=== PATIENT | male | born 1985 | race Caucasian/White ===

== ENCOUNTER 2018-12-11 16:38 | Emergency (ER) | payer OTHER ==
[~2018-12-11] VITALS: Ht 180.3 cm; Wt 131.5 kg
[~2018-12-11 16:38] MED LIST: FLOVENT DISKUS50 MCG; MOTRIN800 MG PO; PREDNISOLONE SO10 MG PO; SINGULAIR 10MG10 MG
[2018-12-11] MEDS ORDERED: SYMBICORT 80/10.2 GM (17:14)
[2018-12-11] MEDS ORDERED: PROMETH-CODEIN 65 ML PO (21:51)
[2018-12-11] MEDS ORDERED: IPRAT-ALBUT 0.5-3 ML IH (21:51)
[2018-12-11] MEDS ORDERED: MUCINEX DM ER1 EAC1 PO (21:51)
[2018-12-11] MEDS ORDERED: ZITHROMAX500 MG PO (21:51)
== END 2018-12-11 21:50 | disposition home or self-care (01) ==
LOC: ER 16:38
DX: J06.9 Acute upper respiratory infection, unspecified (principal)

== ENCOUNTER 2019-05-20 18:32 | Emergency (ER) | payer OTHER ==
[~2019-05-20] VITALS: Ht 180.3 cm; Wt 134.3 kg
[~2019-05-20 18:32] MED LIST changes: +IPRAT-ALBUT 0.5-3 ML IH; +MUCINEX DM ER1 EAC1 PO; +PROMETH-CODEIN 65 ML PO; +SYMBICORT 80/10.2 GM; +ZITHROMAX500 MG PO
[2019-05-20] MEDS ORDERED: ZYRTEC10 M3 (19:23)
== END 2019-05-20 22:15 | disposition home or self-care (01) ==
LOC: ER 18:32
DX: R51 Headache (principal); M79.662 Pain in left lower leg; M79.661 Pain in right lower leg; J32.8 Other chronic sinusitis

== ENCOUNTER → 2021-01-23 09:46 | Outpatient (CLI) | payer OTHER ==
[~2021-01-23 09:46] MED LIST changes: +ZYRTEC10 M3
== END | disposition home or self-care (01) ==
LOC: PPH VACUNA 09:46
DX: Z23 Encounter for immunization (principal)

== ENCOUNTER 2022-01-20 15:13 | Emergency (ER) | payer OTHER ==
[~2022-01-20] VITALS: Ht 180.3 cm; Wt 145.1 kg
[2022-01-20] MEDS ORDERED: ATACAND4 MG PO (15:30)
== END 2022-01-20 19:07 | disposition home or self-care (01) ==
LOC: ER 15:13
DX: J45.909 Unspecified asthma, uncomplicated (principal); Z20.822 Contact with and (suspected) exposure to COVID-19

== ENCOUNTER 2023-03-14 05:27 | Day surgery (SDC) | payer OTHER ==
[~2023-03-14 05:27] MED LIST changes: +ATACAND4 MG PO
== END 2023-03-14 09:25 | disposition home or self-care (01) ==
LOC: AMB-ENDOS 05:27
PROVIDERS: ATTEND Surgery
DX: K29.60 Other gastritis without bleeding (principal); K44.9 Diaphragmatic hernia without obstruction or gangrene; R10.13 Epigastric pain; E66.09 Other obesity due to excess calories; Z20.822 Contact with and (suspected) exposure to COVID-19; Z88.0 Allergy status to penicillin

== ENCOUNTER → 2023-06-18 | Emergency (ER) | payer OTHER ==
[~2023-06-18] VITALS: Ht 180.3 cm; Wt 137.0 kg
== END | disposition home or self-care (01) ==
LOC: ER 18:33
PROVIDERS: General Practice
DX: J98.01 Acute bronchospasm (principal); Z88.0 Allergy status to penicillin; Z20.822 Contact with and (suspected) exposure to COVID-19

== ENCOUNTER 2023-06-22 15:04 | Emergency (ER) | payer OTHER ==
[~2023-06-22] VITALS: Ht 167.6 cm; Wt 113.4 kg
== END 2023-06-22 21:07 | disposition home or self-care (01) ==
LOC: ER 15:05
PROVIDERS: General Practice
DX: J98.01 Acute bronchospasm (principal); Z20.822 Contact with and (suspected) exposure to COVID-19; Z88.0 Allergy status to penicillin